=== PATIENT | female | born 1970 | race Caucasian/White ===

== ENCOUNTER → 2018-09-07 | Outpatient (CLI) | payer BC ==
--- NOTE | 2018-09-07 12:35 | KCIC ---
EXAM: Right foot, 3 views. HISTORY: Pain. COMPARISON: None. FINDINGS: 3 views of the right foot are obtained. There is no fracture, dislocation or subluxation. There is a small plantar spur. There is no lytic or sclerotic osseous lesion. No erosion is seen. IMPRESSION: 1. No acute osseous finding. 2. Small plantar spur. Electronically signed by: Indy Hastings MD (09/07/2018 12:32 PM) [email or web address]
--- NOTE | 2018-09-07 14:40 | KCIC ---
Examination: CT of the left ankle and left foot were performed without contrast HISTORY: History of left foot pain, fall, left ankle pain COMPARISON: None available TECHNIQUE: Axial CT images of the left ankle and left foot were performed without contrast. Coronal and sagittal reformats are performed. Exposure: One or more of the following individualized dose reduction techniques were utilized for this examination: 1. Automated exposure control 2. Adjustment of the mA and/or kV according to patient size 3. Use of iterative reconstruction technique FINDINGS: The ankle mortise appears intact. Small inferior calcaneal enthesophyte identified. The alignment of the tarsal bones grossly appears unremarkable. The alignment of the tarsometatarsal joints, metatarsophalangeal joints, interphalangeal joints grossly appears unremarkable. There is no acute fracture identified. IMPRESSION: 1. No acute osseous findings. 2. Small inferior calcaneal enthesophyte. Electronically signed by: Fitz King MD (09/07/2018 2:37 PM) [id number]
== END | disposition home or self-care (01) ==
LOC: KCIC CT 09:55
PROVIDERS: ATTEND Family Medicine
DX: M77.31 Calcaneal spur, right foot (principal); M77.52 Other enthesopathy of left foot and ankle
CPT/HCPCS: 73630; 73700